=== PATIENT | female | born 1975 | race Caucasian/White ===

== ENCOUNTER 2018-06-25 15:03 | Emergency (ER) | payer MEDICAID ==
[~2018-06-25] VITALS: Ht 154.9 cm; Wt 53.1 kg
[2018-06-25 15:10] VITALS: BP 102/59
--- NOTE | 2018-06-25 15:47 | NUR ---
PATIENT AMBULATED TO BED 6.
--- NOTE | 2018-06-25 15:55 | NUR ---
PT. ARRIVED TO THE ED DUE TO TOOTHACHE X SUNDAY . PT. STATES " MY TOOTH STARTED HURTING AND IT HAS BEEN GETTING WORSE" DENIES ANY INJURY TO MOUTH. /10 SHARP PAIN IN TOOTH THAT IS NON RADIATING. ER MD MADE AWARE. DENIES N/V/D. DENIES DIZZYNESS OR EAR PAIN. WILL CONTINUE TO MONITOR.
[2018-06-25] MEDS ORDERED: KETOROLAC 30 MG/ML VIAL IM ONE (16:05)
[2018-06-25] MEDS ORDERED: PENICILLIN V POTASSIUM 250 MG TAB PO ONE (16:05)
[2018-06-25 16:41] VITALS: BP 106/62
--- NOTE | 2018-06-25 16:41 | NUR ---
Patient discharged with v/s stable. Written and verbal after care instructions given and explained. Patient alert, oriented and verbalized understanding of instructions. Ambulatory with steady gait. All questions addressed prior to discharge. ID band removed. Patient advised to follow up with PMD. Rx of ibuprofen 600mg, norco 5/325, and penicillin vk 500mg given. Patient educated on indication of medication including possible reaction and side effects. Opportunity to ask questions provided and answered.
== END 2018-06-25 16:41 | disposition home or self-care (01) ==
LOC: MED 15:03
DX: K04.7 Periapical abscess without sinus (principal)
CPT/HCPCS: 96372; 99283; J1885